=== PATIENT | female | born 1950 | race Caucasian/White ===

== ENCOUNTER 2017-12-27 15:32 | Emergency (ER) | payer OTHER ==
[2017-12-27 16:01] VITALS: BP 123/70
--- NOTE | 2017-12-27 16:02 | PHYS DOC ---
Adult General Chief Complaint Chief Complaint: MECHANICAL FALL HPI HPI 67-year-old female presents after fall at work. Patient works at [employer] when she was moving a gate when it tipped over. She fell over with it and struck her right knee and right elbow on the ground. Her right shoulder hit the pain of a shelf. She denies loss of consciousness or hitting her head. She continued to work, but the pain in her knee has increased and her limp has worsened. She has swelling on the medial side of the right knee. Her shoulder hurts with abduction above 90. She denies fever or chills. She has no other complaints. Review of Systems Review of Systems Constitutional: Denies fever or chills [] Eyes: Denies change in visual acuity, redness, or eye pain [] HENT: Denies nasal congestion or sore throat [] Respiratory: Denies cough or shortness of breath [] Cardiovascular: No additional information not addressed in HPI [] GI: Denies abdominal pain, nausea, vomiting, bloody stools or diarrhea [] : Denies dysuria or hematuria [] Musculoskeletal: Right knee pain, right shoulder pain[] Integument: Denies rash or skin lesions [] Neurologic: Denies headache, focal weakness or sensory changes [] Endocrine: Denies polyuria or polydipsia [] All other systems were reviewed and found to be within normal limits, except as documented in this note. Physical Exam Physical Exam Constitutional: Well developed, well nourished, no acute distress, non-toxic appearance. [] HENT: Normocephalic, atraumatic, bilateral external ears normal, oropharynx moist, no oral exudates, nose normal. [] Eyes: PERRLA, EOMI, conjunctiva normal, no discharge. [] Neck: Normal range of motion, no tenderness, supple, no stridor. [] Cardiovascular:Heart rate regular rhythm, no murmur [] Lungs & Thorax: Bilateral breath sounds clear to auscultation [] Abdomen: Bowel sounds normal, soft, no tenderness, no masses, no pulsatile masses. [] Skin: Warm, dry, no erythema, no rash. [] Back: No tenderness, no CVA tenderness. [] Extremities: Shoulder pain with active abduction above 90. No pain with passive motion above 90. Right knee swollen on the medial side with small skin abrasion. No ligamentous laxity. No sign of infection.[] Neurologic: Alert and oriented X 3, normal motor function, normal sensory function, no focal deficits noted. [] Psychologic: Affect normal, judgement normal, mood normal. [] EKG EKG [] Radiology/Procedures Radiology/Procedures [] Impressions: Examination: 2 views of the right shoulder, 4 views of the right knee HISTORY: History of fall, pain COMPARISON: None available. Right knee: The alignment of the knee joint grossly appears unremarkable.There is mild joint space loss identified in the medial, lateral, patellofemoral compartments. There is no acute fracture identified. Minimal knee joint effusion. Right shoulder: The humerus head is within the glenoid. There is mild joint space loss identified in the acromioclavicular joint, glenohumeral joint. No acute fracture identified. IMPRESSION: 1. No acute osseous findings. 2. Mild tricompartmental degenerative changes knee joint. Small knee joint effusion. Electronically signed by: Mathew Kumari MD (12/27/2017 4:38 PM) [facility] DICTATED AND SIGNED BY: MATHEW KUMARI MD DATE: 12/27/17 5928 CC: JENNIFER LO DO; APRIL CRUZ MD ~ Course & Med Decision Making Course & Med Decision Making Pertinent Labs and Imaging studies reviewed. (See chart for details) The patient's x-rays are negative for fracture. She has a small effusion of the knee. I think the pressure in the knee is probably caused her significant pain. I will recommended icing, anti-inflammatories, and I'll provide her a short course of [place] 5/325 for breakthrough pain. [] Dragon Disclaimer Dragon Disclaimer This electronic medical record was generated, in whole or in part, using a voice recognition dictation system. Departure Departure: Referrals: APRIL CRUZ MD (PCP) JENNIFER LO DO Dec 27, 2017 16:02
--- NOTE | 2017-12-27 16:41 | RAD ---
Examination: 2 views of the right shoulder, 4 views of the right knee HISTORY: History of fall, pain COMPARISON: None available. Right knee: The alignment of the knee joint grossly appears unremarkable.There is mild joint space loss identified in the medial, lateral, patellofemoral compartments. There is no acute fracture identified. Minimal knee joint effusion. Right shoulder: The humerus head is within the glenoid. There is mild joint space loss identified in the acromioclavicular joint, glenohumeral joint. No acute fracture identified. IMPRESSION: 1. No acute osseous findings. 2. Mild tricompartmental degenerative changes knee joint. Small knee joint effusion. Electronically signed by: Mathew Kumari MD (12/27/2017 4:38 PM) [facility]
[2017-12-27] MEDS ORDERED: HYDR-971 PO (17:01)
== END 2017-12-27 17:14 | disposition home or self-care (01) ==
LOC: ER 15:32
DX: M25.461 Effusion, right knee (principal); M25.521 Pain in right elbow; S80.211A Abrasion, right knee, initial encounter; W18.09XA Striking against other object with subsequent fall, initial encounter; Y93.89 Activity, other specified; Y92.89 Other specified places as the place of occurrence of the external cause; Y99.8 Other external cause status
CPT/HCPCS: 73030; 73564; 99284